=== PATIENT | female | born 1965 | race Hispanic/Latino ===

== ENCOUNTER 2018-08-21 10:55 | Emergency (ER) | payer MEDICARE ==
[2018-08-21 20:43] VITALS: BMI 22.6
== END 2018-08-21 11:03 | disposition left against medical advice (07) ==
LOC: ED 10:55
DX: Z02.89 Encounter for other administrative examinations (principal); Z00.00 Encounter for general adult medical examination without abnormal findings

== ENCOUNTER 2018-08-21 11:29 | Inpatient (IN) | payer MEDICARE, OTHER ==
[2018-08-21] MEDS ORDERED: Sodium Chloride 0.9% 500 ML IV STA (12:02)
--- NOTE | 2018-08-21 12:21 | ED PDOC ---
Arrival/HPI - General Chief Complaint: Abdominal Pain Time Seen by Provider: 08/21/18 11:41 Historian: Patient - History of Present Illness Narrative History of Present Illness (Text): 08/21/18 11:41 Karis Oliver, is a 53 year old female, with a past medical history of Crohn's disease, cholecystectomy, and hysterectomy, who presents to the emergency department complaining of nausea / vomiting and right lower quadrant abdominal pain secondary to Crohn's flare-up since 1-2 weeks. Patient denies recent travel outside [place], dysuria, hematuria, vaginal bleeding, chest pain, shortness of breath, cough, diarrhea, fevers, chills, or any other complaints. Denies recent antibiotic use. 08/21/18 15:51 Time/Duration: > week (1-2 weeks) Symptom Onset: Gradual Symptom Course: Unchanged Activities at Onset: Light Context: Home Past Medical History - Provider Review Nursing Documentation Reviewed: Yes Primary Care Provider: Francisco Nascimento - Infectious Disease Hx of Infectious Diseases: None - Reproductive Menopause: No - Cardiac Hx Hypertension: Yes - Neurological Hx Seizures: Yes - Endocrine/Metabolic Other/Comment: adrenal tumor - Gastrointestinal Hx Crohn's Disease: Yes - Psychiatric Hx Substance Use: No - Surgical History Other/Comment: cerrebral artery bypass [facility] in 2006 - Anesthesia Hx Anesthesia: Yes Hx Anesthesia Reactions: No Hx Malignant Hyperthermia: No Family/Social History - Physician Review Nursing Documentation Reviewed: Yes Family/Social History: Unknown Family HX Smoking Status: Never Smoked Hx Alcohol Use: No Hx Substance Use: No Allergies/Home Meds Allergies/Adverse Reactions: Allergies meperidine [From Demerol] Allergy (Verified 08/21/18 12:01) RASH Home Medications: Home Meds Medication Instructions Recorded Confirmed Unobtainable 08/21/18 08/21/18 Review of Systems - Physician Review All systems were reviewed & negative as marked: Yes - Review of Systems Constitutional: absent: Fevers, Other (chills) Respiratory: absent: SOB, Cough, Sputum, Wheezing Cardiovascular: absent: Chest Pain Gastrointestinal: Abdominal Pain (RLQ), Diarrhea, Nausea, Vomiting. absent: Constipation Genitourinary Female: absent: Dysuria, Frequency, Hematuria Skin: absent: Rash, Pruritis Neurological: absent: Headache, Dizziness Physical Exam Vital Signs Reviewed: Yes Vital Signs Temp Pulse Resp BP Pulse Ox 08/21/18 11:40 98.4 F 52 L 19 135/64 100 Temperature: Afebrile Blood Pressure: Normal Pulse: Bradycardic Respiratory Rate: Normal Appearance: Positive for: Well-Appearing, Non-Toxic, Comfortable Pain Distress: None Mental Status: Positive for: Alert and Oriented X 3 - Systems Exam Head: Present: Atraumatic, Normocephalic Pupils: Present: PERRL Extroacular Muscles: Present: EOMI Conjunctiva: Present: Normal Mouth: Present: Moist Mucous Membranes Neck: Present: Normal Range of Motion Respiratory/Chest: Present: Clear to Auscultation, Good Air Exchange. No: Respiratory Distress, Accessory Muscle Use, Wheezes, Rales, Rhonchi Cardiovascular: Present: Normal S1, S2, Bradycardic. No: Murmurs, Rub, Gallop Abdomen: Present: Tenderness (RLQ), Normal Bowel Sounds. No: Distention, Peritoneal Signs, Rebound, Guarding Back: Present: Normal Inspection Upper Extremity: Present: Normal Inspection. No: Cyanosis, Edema Lower Extremity: Present: Normal Inspection. No: Edema Neurological: Present: GCS=15, CN II-XII Intact, Speech Normal Skin: Present: Warm, Dry, Normal Color. No: Rashes Psychiatric: Present: Alert, Oriented x 3, Normal Insight, Normal Concentration Medical Decision Making ED Course and Treatment: 08/21/18 11:41 Impression: Pt is a 53 year old female, with a history of Crohn's disease, cholecystectomy, and hysterectomy, who presents to the emergency department complaining of nausea / vomiting and RLQ pain secondary to ?Crohn's flare-up since 1-2 weeks. Plan: -- CT A/P -- Labs -- IV Fluids -- Toradol -- Zofran -- Reassess and disposition Prior Visits: Notes and results from previous visits were reviewed. Patient was last seen in the emergency department on Progress Notes: 08/21/18 12:[address] Matute is needed as requested by patient 08/21/18 12:33 EKG shows sinus bradycardia at 47bpm with no acute ST changes 08/21/18 14:56 IMPRESSION: Circumferential mural thickening of the rectum consistent with nonspecific proctitis. This may reflect the patient's known Crohn's disease. No other significant abnormality is identified. Spoke to Dr. Matute who is requesting cipro and flagyl and clear liquid diet. Will review CT. Does not want steroids currently. Dr. Florentino accepts for Dr. Nascimento. - RAD Interpretation Radiology Orders: 08/21/18 12:01 ABD PELVIS PO & IV CONTRAST [CT] Stat - Medication Orders Current Medication Orders: Sodium Chloride (Sodium Chloride 0.9%) 500 mls @ 999 mls/hr IV .Q31M STA Stop: 08/21/18 12:32 Discontinued Medications Ketorolac Tromethamine (Toradol) 30 mg IVP STAT STA Stop: 08/21/18 12:03 - Scribe Statement The provider has reviewed the documentation as recorded by the Scribe Nj Sheth All medical record entries made by the Scribe were at my direction and personally dictated by me. I have reviewed the chart and agree that the record accurately reflects my personal performance of the history, physical exam, medical decision making, and the department course for this patient. I have also personally directed, reviewed, and agree with the discharge instructions and disposition. Disposition/Present on Arrival - Present on Arrival Any Indicators Present on Arrival: No History of DVT/PE: No History of Uncontrolled Diabetes: No Urinary Catheter: No History of Decub. Ulcer: No History Surgical Site Infection Following: None - Disposition Have Diagnosis and Disposition been Completed?: Yes Diagnosis: Crohns disease, Abdominal pain Disposition: HOSPITALIZED Disposition Time: 14:56 Patient Plan: Observation Patient Problems: Current Active Problems Problem Status Onset Abdominal pain Acute Crohns disease Acute Condition: FAIR Referrals: Francisco Nascimento MD [Primary Care Provider] - Follow up with primary Forms: [employer] (Lebanese)
[2018-08-21] MEDS ORDERED: Iohexol 240 (50 ml) ONE (12:22)
[2018-08-21 13:14] LABS: BASO # 0.02 K/mm3 (0.0-2.0); BASO % 0.4 % (0.0-3.0); EOS # 0.1 (0.0-0.7); HEMOGLOBIN 11.2 g/dL (12.0-16.0); LYMPH # 1.9 (1.2-3.4); LYMPH % 37.4 % (22.0-35.0); MEAN CELL VOLUME 83.9 fl (80.0-105.0); MEAN CORPUSCULAR HGB CONC 32.2 g/dl (31.0-37.0); MEAN PLATELET VOLUME 9.4 fl (7.0-11.0); MONO # 0.4 (0.1-0.6); RBC 4.15 10^6/uL (3.5-6.1); RED CELL DISTRIBUTION WIDTH 14.1 % (11.5-14.5); WHITE BLOOD COUNT 5.1 10^3/uL (4.5-11.0)
[2018-08-21 13:24] LABS: BLOOD UREA NITROGEN 23 mg/dL (7-21); GFR NON-AFRICAN AMERICAN 58; INR 1.05; PARTIAL THROMBOPLASTIN TIME 38.8 Seconds (26.9-38.3); PROTHROMBIN TIME 11.9 SECONDS (9.4-12.5)
[2018-08-21 13:25] LABS: ALB/GLOB RATIO 1.2 (1.1-1.8); ALBUMIN 4.1 g/dL (3.0-4.8); ALT/SGPT 17 U/L (7-56); AST/SGOT 20 U/L (14-36); CALCIUM 9.2 mg/dL (8.4-10.5); LIPASE 55 U/L (23-300)
[2018-08-21] MEDS ORDERED: Iodixanol 320 MG/ML 100 ML BOTTLE IV ONE (13:35)
--- NOTE | 2018-08-21 14:53 | CT ---
Date of service: 08/21/2018 PROCEDURE: CT Abdomen and Pelvis with contrast HISTORY: abdominal pain, hx crohns COMPARISON: None. TECHNIQUE: Contrast dose: 100 mL Visipaque 320 Radiation dose: Total exam DLP = 275.66 mGy-cm. This CT exam was performed using one or more of the following dose reduction techniques: Automated exposure control, adjustment of the mA and/or kV according to patient size, and/or use of iterative reconstruction technique. FINDINGS: LOWER THORAX: Unremarkable. LIVER: Normal size, contour and attenuation. No mass. No biliary dilatation. GALLBLADDER AND BILE DUCTS: Gallbladder appears unremarkable save for several surgical clips adjacent to the gallbladder, in the gallbladder fossa. This raises the possibility of prior cholecystectomy with postoperative collection in the gallbladder fossa. Please correlate with history. PANCREAS: Unremarkable. No gross lesion or ductal dilatation. SPLEEN: Unremarkable. ADRENALS: Unremarkable. No mass. KIDNEYS AND URETERS: Unremarkable. No hydronephrosis. No solid mass. VASCULATURE: Unremarkable. No aortic aneurysm. There is atherosclerotic calcification of the abdominal aorta. BOWEL: There is circumferential mural thickening of the rectum. No bowel obstruction. No other abnormal bowel loops. These findings in the rectum may reflect the patient's known Crohn's disease but are not specific. APPENDIX: Normal appendix. PERITONEUM: Unremarkable. No free fluid. No free air. LYMPH NODES: Unremarkable. No enlarged lymph nodes. BLADDER: Unremarkable. REPRODUCTIVE: Status post hysterectomy BONES: No acute fracture. OTHER FINDINGS: None. IMPRESSION: Circumferential mural thickening of the rectum consistent with nonspecific proctitis. This may reflect the patient's known Crohn's disease. No other significant abnormality is identified.
[2018-08-21] MEDS ORDERED: metroNIDAZOLE IV 500 mg/100 ml 500 MG/100 ML BAG IVPB STA (14:54)
[2018-08-21] MEDS ORDERED: Ciprofloxacin 400mg/200ml D5W 400 MG/200 ML BAG IVPB STA (14:55)
[2018-08-21 16:52] LABS: URINE BILIRUBIN NEGATIVE (NEGATIVE); URINE BLOOD NEGATIVE (NEGATIVE); URINE GLUCOSE (UA) NEGATIVE (NEGATIVE); URINE LEUKOCYTE ESTERASE NEGATIVE Leu/uL (NEGATIVE); URINE PROTEIN NEGATIVE mg/dL (<30 mg/dL); URINE UROBILINOGEN 0.2 E.U./dL (<1 E.U./dL)
[2018-08-21 16:55] LABS: URINE APPEARANCE CLEAR (CLEAR); URINE COLOR STRAW (YELLOW)
--- NOTE | 2018-08-21 19:36 | CARD ---
APPROVED REPORT Date of service: 08/21/2018 EKG Measurement Heart [id number] <Conclusion> Marked sinus bradycardia Abnormal ECG
[2018-08-21 20:43] VITALS: BMI 22.6
[2018-08-21] MEDS ORDERED: Pneumococcal 23-Valent Vaccine IM ONE (20:44)
[2018-08-22 08:35] LABS: BASO # 0.01 K/mm3 (0.0-2.0); BASO % 0.2 % (0.0-3.0); EOS % 0.4 % (1.5-5.0); HEMOGLOBIN 10.8 g/dL (12.0-16.0); LYMPH # 1.2 (1.2-3.4); LYMPH % 22.1 % (22.0-35.0); MEAN CELL VOLUME 82.8 fl (80.0-105.0); MEAN CORPUSCULAR HEMOGLOBIN 26.5 pg (25.0-35.0); MEAN PLATELET VOLUME 9.2 fl (7.0-11.0); MONO # 0.4 (0.1-0.6); MONO % 8.1 % (1.0-6.0); RBC 4.08 10^6/uL (3.5-6.1); WHITE BLOOD COUNT 5.3 10^3/uL (4.5-11.0)
[2018-08-22 08:59] LABS: ALB/GLOB RATIO 1.2 (1.1-1.8); ALBUMIN 3.8 g/dL (3.0-4.8); ALT/SGPT 16 U/L (7-56); AST/SGOT 11 U/L (14-36); BLOOD UREA NITROGEN 15 mg/dL (7-21); CALCIUM 9.1 mg/dL (8.4-10.5); GFR NON-AFRICAN AMERICAN > 60
[2018-08-22] MEDS: Mesalamine 800 mg DR Tab PO SCH (10:24)
--- NOTE | 2018-08-22 12:16 | CP.PCM.CON ---
<Lilibeth Monroe - Last Filed: 08/22/18 12:17> History of Present Illness - History of Present Illness History of Present Illness: PGY5 GI Consult Note for Dr. Juju Floresie Oliver is a 53F w/ hx of CVA with expressive dysphasia, Crohns (diagnosed 30 years ago?) who presents to the ER with complaints of abd pain. Pt has dysphasia s/p CVA, so communication was limited to yes or no answers. Pt stats that her symptoms of abd pain started 1-2 weeks ago. She denies any rectal bleeding, but notes diarrhea recently. She denies any nausea or vomiting. She notes having a colonoscopy within the year and was abnormal. She also notes weightloss. She notes being compliant on mesalamine and was previously on other meds but could not relay the medication names. She was started on cipro/flagyl in the ER and CT revealed rectal thickening PMHx: HTN, CVA?, dysphasia, Crohn's PSHx: Hysterectomy, cholecysectomy Social hx: unable to obtain Family hx: denies any GI related malignancies RSO: 12 point ROS conducted, neg other than above Past Patient History - Infectious Disease Hx of Infectious Diseases: None - Past Social History Smoking Status: Never Smoked - CARDIAC Hx Cardiac Disorders: Yes Hx Hypercholesterolemia: Yes Hx Hypertension: Yes - PULMONARY Hx Respiratory Disorders: No - NEUROLOGICAL Hx Neurological Disorder: Yes HX Cerebrovascular Accident: Yes (06/2017) Hx Seizures: Yes Hx Transient Ischemic Attacks (TIA): Yes Other/Comment: multiple tia's about 12, had cerebral artery bypass sx at [facility] in 2006 due to the multiple tia's, surgery was unsuccessful causing loss of oxygen to cerebral artery and was told she would have seizures, and a stroke in about 6 yrs. pt had multiple tia's, pt & family lost count how many since since and a cva 06/2017 which left her with right side weakness and impaired speech - HEENT Hx HEENT Problems: No - RENAL Hx Chronic Kidney Disease: No - ENDOCRINE/METABOLIC Hx Endocrine Disorders: Yes Other/Comment: adrenal tumor - HEMATOLOGICAL/ONCOLOGICAL Hx Blood Disorders: Yes Hx Cancer: Yes (melanoma face/back) - INTEGUMENTARY Hx Melanoma: Yes (face/back) - MUSCULOSKELETAL/RHEUMATOLOGICAL Hx Falls: No - GASTROINTESTINAL Hx Gastrointestinal Disorders: Yes Hx Crohn's Disease: Yes (since age 21) - GENITOURINARY/GYNECOLOGICAL Hx Genitourinary Disorders: No - PSYCHIATRIC Hx Substance Use: No - SURGICAL HISTORY Hx Surgeries: Yes Hx Cholecystectomy: Yes Hx Hysterectomy: Yes Other/Comment: cerebral artery bypass [facility] in 2007, c sections x5, melanoma removal from face and back - ANESTHESIA Hx Anesthesia: Yes Hx Anesthesia Reactions: No Hx Malignant Hyperthermia: No Meds Allergies/Adverse Reactions: Allergies Allergy/AdvReac Type Severity Reaction Status Date / Time meperidine [From Demerol] Allergy RASH Verified 08/21/18 12:01 - Medications Medications: Current Medications Atorvastatin Calcium (Lipitor) 40 mg PO DAILY [facility] Last Admin: 08/22/18 10:22 Dose: 40 mg Clopidogrel Bisulfate (Plavix) 75 mg PO DAILY [facility] Last Admin: 08/22/18 10:23 Dose: 75 mg Hydrochlorothiazide (Hydrodiuril) 25 mg PO DAILY [facility] Last Admin: 08/22/18 10:23 Dose: 25 mg Levetiracetam (Keppra) 1,000 mg PO BID [facility] Last Admin: 08/22/18 10:23 Dose: 1,000 mg Mesalamine (Asacol Hd 800mg) 2,400 mg PO DAILY [facility] Last Admin: 08/22/18 10:24 Dose: 2,400 mg Physical Exam - Constitutional Appears: Well, No Acute Distress - Head Exam Head Exam: ATRAUMATIC, NORMOCEPHALIC - Eye Exam Eye Exam: Normal appearance - ENT Exam ENT Exam: Mucous Membranes Moist, Normal Exam - Neck Exam Neck exam: Positive for: Normal Inspection - Respiratory Exam Respiratory Exam: Clear to Auscultation Bilateral, NORMAL BREATHING PATTERN. absent: Rales, Rhonchi, Wheezes, Respiratory Distress - Cardiovascular Exam Cardiovascular Exam: REGULAR RHYTHM, +S1, +S2 - GI/Abdominal Exam GI & Abdominal Exam: Normal Bowel Sounds, Soft, Tenderness (lower abd, around umbilicus). absent: Distended, Guarding, Hernia, Organomegaly, Rebound, Rigid - Extremities Exam Extremities exam: Negative for: joint swelling, pedal edema - Neurological Exam Neurological exam: Alert - Psychiatric Exam Psychiatric exam: Normal Affect, Normal Mood - Skin Skin Exam: Dry, Intact, Normal Color, Warm Results - Vital Signs Recent Vital Signs: Last Vital Signs Temp 99.7 F H 08/22/18 08:29 Pulse 63 08/22/18 08:29 Resp 20 08/22/18 08:29 BP 113/74 08/22/18 08:29 Pulse Ox 95 08/22/18 08:29 - Labs Result Diagrams: 08/22/18 08:20 08/22/18 08:20 Labs: Laboratory Results - last 24 hr 08/21/18 08/21/18 08/21/18 12:58 12:58 12:58 WBC 5.1 RBC 4.15 Hgb 11.2 L Hct 34.8 L MCV 83.9 MCH 27.0 MCHC 32.2 RDW 14.1 Plt Count 296 MPV 9.4 Neut % (Auto) 54.2 Lymph % (Auto) 37.4 H Starr % (Auto) 7.0 H Eos % (Auto) 1.0 L Baso % (Auto) 0.4 Lymph # (Auto) 1.9 Starr # (Auto) 0.4 Eos # (Auto) 0.1 Baso # (Auto) 0.02 Absolute Neuts (auto) 2.79 ESR PT 11.9 INR 1.05 APTT 38.8 H Sodium 140 Potassium 4.1 Chloride 107 Carbon Dioxide 22 Anion Gap 14 BUN 23 H Creatinine 1.0 Est GFR ( Amer) > 60 Est GFR (Non-Af Amer) 58 Random Glucose 83 Calcium 9.2 Phosphorus 4.3 Magnesium 2.1 Total Bilirubin 0.4 AST 20 ALT 17 Alkaline Phosphatase 94 Total Protein 7.4 Albumin 4.1 Globulin 3.3 Albumin/Globulin Ratio 1.2 Lipase 55 Urine Color Urine Appearance Urine pH Ur Specific [place] Urine Protein Urine Glucose (UA) Urine Ketones Urine Blood Urine Nitrate Urine Bilirubin Urine Urobilinogen Ur Leukocyte Esterase 08/21/18 08/22/18 08/22/18 16:00 08:20 08:20 WBC 5.3 RBC 4.08 Hgb 10.8 L Hct 33.8 L MCV 82.8 MCH 26.5 MCHC 32.0 RDW 14.0 Plt Count 253 MPV 9.2 Neut % (Auto) 69.2 H Lymph % (Auto) 22.1 Starr % (Auto) 8.1 H Eos % (Auto) 0.4 L Baso % (Auto) 0.2 Lymph # (Auto) 1.2 Starr # (Auto) 0.4 Eos # (Auto) 0.0 Baso # (Auto) 0.01 Absolute Neuts (auto) 3.69 ESR 25 H PT INR APTT Sodium 143 Potassium 4.0 Chloride 110 H Carbon Dioxide 19 L Anion Gap 17 BUN 15 Creatinine 0.9 Est GFR ( Amer) > 60 Est GFR (Non-Af Amer) > 60 Random Glucose 92 Calcium 9.1 Phosphorus Magnesium Total Bilirubin 0.4 AST 11 L D ALT 16 Alkaline Phosphatase 90 Total Protein 7.0 Albumin 3.8 Globulin 3.1 Albumin/Globulin Ratio 1.2 Lipase Urine Color Straw Urine Appearance Clear Urine pH 6.0 Ur Specific [place] 1.010 Urine Protein Negative Urine Glucose (UA) Negative Urine Ketones Negative Urine Blood Negative Urine Nitrate Negative Urine Bilirubin Negative Urine Urobilinogen 0.2 Ur Leukocyte Esterase Negative Assessment & Plan - Assessment and Plan (Free Text) Assessment: Karis Oliver is a 53F w/ hx of crohns, dysphasia who presents with abd pain Abd pain, etiology unclear: ddx: crohns, proctitis, enteritis (viral or bacterial) Acute diarrhea, etiology unknown; ddx: infectous vs crohn's flare hx of Crohns hx CVA dysphasia Plan: -r/o c.diff; obtain stool cultures -continue cipro and flagyl -liquid diet as tolerated -PPI PO 40g daily -Heparin DVT proph -fecal toño -esr and crp -continue mesalamine PO as ordered -blood cultures pending will d/w Dr. Matute <Sunday Matute V - Last Filed: 08/22/18 23:44> Meds - Medications Medications: Current Medications Atorvastatin Calcium (Lipitor) 40 mg PO DAILY [facility] Last Admin: 08/22/18 10:22 Dose: 40 mg Clopidogrel Bisulfate (Plavix) 75 mg PO DAILY [facility] Last Admin: 08/22/18 10:23 Dose: 75 mg Hydrochlorothiazide (Hydrodiuril) 25 mg PO DAILY [facility] Last Admin: 08/22/18 10:23 Dose: 25 mg Metronidazole (Flagyl) 500 mg in 100 mls @ 100 mls/hr IVPB Q8 [facility]; Protocol Last Admin: 08/22/18 21:06 Dose: 100 mls/hr Levetiracetam (Keppra) 1,000 mg PO BID [facility] Last Admin: 08/22/18 17:55 Dose: 1,000 mg Mesalamine (Asacol Hd 800mg) 2,400 mg PO DAILY [facility] Last Admin: 08/22/18 10:24 Dose: 2,400 mg Results - Vital Signs Recent Vital Signs: Last Vital Signs Temp 99.7 F H 08/22/18 08:29 Pulse 63 08/22/18 08:29 Resp 20 08/22/18 08:29 BP 113/74 08/22/18 08:29 Pulse Ox 95 08/22/18 08:29 - Labs Result Diagrams: 08/22/18 08:20 08/22/18 08:20 Labs: Laboratory Results - last 24 hr 08/22/18 08/22/18 08:20 08:20 WBC 5.3 RBC 4.08 Hgb 10.8 L Hct 33.8 L MCV 82.8 MCH 26.5 MCHC 32.0 RDW 14.0 Plt Count 253 MPV 9.2 Neut % (Auto) 69.2 H Lymph % (Auto) 22.1 Starr % (Auto) 8.1 H Eos % (Auto) 0.4 L Baso % (Auto) 0.2 Lymph # (Auto) 1.2 Starr # (Auto) 0.4 Eos # (Auto) 0.0 Baso # (Auto) 0.01 Absolute Neuts (auto) 3.69 ESR 25 H Sodium 143 Potassium 4.0 Chloride 110 H Carbon Dioxide 19 L Anion Gap 17 BUN 15 Creatinine 0.9 Est GFR ( Amer) > 60 Est GFR (Non-Af Amer) > 60 Random Glucose 92 Calcium 9.1 Total Bilirubin 0.4 AST 11 L D ALT 16 Alkaline Phosphatase 90 C-Reactive Protein 21.20 H Total Protein 7.0 Albumin 3.8 Globulin 3.1 Albumin/Globulin Ratio 1.2 Attending/Attestation - Attestation I have personally seen and examined this patient.: Yes I have fully participated in the care of the patient.: Yes I have reviewed all pertinent clinical information: Yes Notes (Text): This 53-year-old patient with a long history of Crohn's disease only on mesalam ine p.o. was admitted for increasing episodes of diarrhea abdominal cramps. Patient also gave significant history of weight loss nearly about 30 pounds the last few months. Status post CVA patient does have some dysarthria. Patient has been tolerating diet. History was from the patient and also patient's son who was at bedside. Patient was living in [place] recently moved to [place]. Patient has been followed by irrigation specialist in [place]. Patient had multiple colonoscopies done in the past last colonoscopy was close to year ago. Patient had seen Dr. Castorena in [place]. He was started on prednisone 10 mg. He took it for few weeks. Patient was still remains symptomatic and symptoms more pronounced now. She was advised to go to the ER. Patient has been on liquid diet On examination abdomen was soft nontender The CT scan was reviewed The differential diagnosis should include a IBD exacerbation of Crohn's Rule out C. difficile Recommend 1. Stool for C. difficile, stool culture, calprotectin 2. Empiric antibiotic Cipro and Flagyl 3. Liquid diet 4. Review of the records from [facility] 5. Flexible sigmoidoscopy/colonoscopy on Friday08/22/18 23:42
[2018-08-22] MEDS ORDERED: Ciprofloxacin 400mg/200ml D5W 400 MG/200 ML BAG IVPB STA (12:26)
[2018-08-22] MEDS: metroNIDAZOLE IV 500 mg/100 ml 500 MG/100 ML BAG IVPB SCH ×2 (15:45→21:06)
[2018-08-23] MEDS: metroNIDAZOLE IV 500 mg/100 ml 500 MG/100 ML BAG IVPB SCH ×3 (05:11→21:29)
[2018-08-23] MEDS: Mesalamine 800 mg DR Tab PO SCH (09:54)
[2018-08-23] MEDS ORDERED: NuLYTELY (NACL/NAHCO3/KCL/PEG) 4L PO ONE (13:20)
[2018-08-23] MEDS ORDERED: Bisacodyl 5mg EC Tab PO ONE (13:20)
--- NOTE | 2018-08-23 14:02 | CP.PCM.PN ---
<Lilibeth Monroe - Last Filed: 08/23/18 14:03> Subjective - Date & Time of Evaluation Date of Evaluation: 08/23/18 Time of Evaluation: 10:00 - Subjective Subjective: PGY5 GI Follow-up Pt seen and examined bedside Denies ant abd pain tolertaed liquids +BM no other complaints ROS: 12 point ROS conducted, neg other than above Objective - Vital Signs/Intake and Output Vital Signs (last 24 hours): Temp Pulse Resp BP Pulse Ox 98.7 F 85 18 95/69 L 96 08/23/18 08:18 08/23/18 08:18 08/23/18 08:18 08/23/18 08:18 08/23/18 08:18 Intake and Output: 08/23/18 08/23/18 06:59 18:59 Intake Total 1140 Balance 1140 - Medications Medications: Current Medications Atorvastatin Calcium (Lipitor) 40 mg PO DAILY [facility] Last Admin: 08/23/18 09:54 Dose: 40 mg Clopidogrel Bisulfate (Plavix) 75 mg PO DAILY [facility] Last Admin: 08/23/18 09:54 Dose: 75 mg Metronidazole (Flagyl) 500 mg in 100 mls @ 100 mls/hr IVPB Q8 [facility]; Protocol Last Admin: 08/23/18 05:11 Dose: 100 mls/hr Levetiracetam (Keppra) 1,000 mg PO BID [facility] Last Admin: 08/23/18 09:54 Dose: 1,000 mg Mesalamine (Asacol Hd 800mg) 2,400 mg PO DAILY [facility] Last Admin: 08/23/18 09:54 Dose: 2,400 mg - Labs Labs: 08/22/18 08:20 08/22/18 08:20 PT 11.9 SECONDS (9.4-12.5) 08/21/18 12:58 INR 1.05 08/21/18 12:58 APTT 38.8 Seconds (26.9-38.3) H 08/21/18 12:58 - Constitutional Appears: Non-toxic, No Acute Distress - Head Exam Head Exam: ATRAUMATIC, NORMOCEPHALIC - Eye Exam Eye Exam: Normal appearance - ENT Exam ENT Exam: Mucous Membranes Moist, Normal Exam - Respiratory Exam Respiratory Exam: Clear to Ausculation Bilateral, NORMAL BREATHING PATTERN. absent: Rales, Wheezes, Respiratory Distress - Cardiovascular Exam Cardiovascular Exam: REGULAR RHYTHM, +S1, +S2 - GI/Abdominal Exam GI & Abdominal Exam: Soft, Normal Bowel Sounds. absent: Firm, Guarding, Rigid, Tenderness, Rebound - Extremities Exam Extremities Exam: absent: Joint Swelling, Pedal Edema - Neurological Exam Neurological Exam: Alert, Awake - Psychiatric Exam Psychiatric exam: Normal Affect, Normal Mood - Skin Skin Exam: Dry, Intact, Normal Color, Warm Assessment and Plan - Assessment and Plan (Free Text) Assessment: Karis Oliver is a 53F w/ hx of crohns, dysphasia who presents with abd pain Abd pain, etiology unclear: ddx: crohns, proctitis, enteritis (viral or bacterial) Acute diarrhea, etiology unknown; ddx: infectous vs crohn's flare weightloss hx of Crohns hx CVA dysphasia Plan: -r/o cdiff; obtain stool cultures -continue cipro and flagyl -clear liquid diet -PPI PO 40g daily -Heparin DVT proph -fecal toño -continue mesalamine PO as ordered -start colon prep -NPO after midnight -EGD and colonoscopy tomorrow d/w Dr. Matute <Sunday Matute V - Last Filed: 08/24/18 00:06> Objective - Vital Signs/Intake and Output Vital Signs (last 24 hours): Temp Pulse Resp BP Pulse Ox 98.7 F 85 18 95/69 L 96 08/23/18 08:18 08/23/18 08:18 08/23/18 08:18 08/23/18 08:18 08/23/18 08:18 Intake and Output: 08/23/18 08/24/18 18:59 06:59 Intake Total 100 1860 Balance 100 1860 - Medications Medications: Current Medications Atorvastatin Calcium (Lipitor) 40 mg PO DAILY [facility] Last Admin: 08/23/18 09:54 Dose: 40 mg Clopidogrel Bisulfate (Plavix) 75 mg PO DAILY [facility] Last Admin: 08/23/18 09:54 Dose: 75 mg Metronidazole (Flagyl) 500 mg in 100 mls @ 100 mls/hr IVPB Q8 [facility]; Protocol Last Admin: 08/23/18 21:29 Dose: 100 mls/hr Levetiracetam (Keppra) 1,000 mg PO BID [facility] Last Admin: 08/23/18 18:06 Dose: 1,000 mg Mesalamine (Asacol Hd 800mg) 2,400 mg PO DAILY [facility] Last Admin: 08/23/18 09:54 Dose: 2,400 mg - Labs Labs: 08/22/18 08:20 08/22/18 08:20 PT 11.9 SECONDS (9.4-12.5) 08/21/18 12:58 INR 1.05 08/21/18 12:58 APTT 38.8 Seconds (26.9-38.3) H 08/21/18 12:58 Attending/Attestation - Attestation I have personally seen and examined this patient.: Yes I have fully participated in the care of the patient.: Yes I have reviewed all pertinent clinical information, including history, physical exam and plan: Yes Notes (Text): This patient was seen and evaluated along with GI fellow earlier. This is an addendum to the GI progress report dictated by the GI fellow. Patient will be scheduled for a colonoscopy and possibly endoscopy to further evaluate his patient's weight loss and diarrhea. Continue the antibiotics Stool for C. difficile no plan for now for steroid or biologic therapy for Crohn's disease now 08/24/18 00:02
--- NOTE | 2018-08-23 21:37 | PN ---
DATE: 08/23/2018 SUBJECTIVE: The patient is a 53-year-old white female who was admitted with right lower quadrant pain and also left lower quadrant pain. The patient has a history of CVA after multiple TIAs. She has expressive aphasia and right hemiparesis. 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 She had an appointment to see Dr. Matute as an outpatient, but not until October when she has developed severe abdominal pain. She was admitted to the hospital with exacerbation of Crohn colitis versus proctitis. The patient is afebrile. Vital signs are stable. The patient has decreased pain. The patient get IV antibiotics and mesalamine. Case was discussed with Dr. Matute as far as treatment of her worsening of her Crohn colitis possible remission medication versus chronic medication. Francisco Nascimento MD
--- NOTE | 2018-08-23 21:58 | HP ---
DATE OF EXAM: 08/23/2018 HISTORY OF PRESENT ILLNESS: The patient is 53 years old, lying in bed, seems to be comfortable. Has expressive dysphagia because of previous CVA. The patient came to emergency room because of abdominal pain, unable to give much elaborate history; however, information collected from her admission that the patient has abdominal pain that started 2-3 weeks ago with decreased appetite, having intermittent diarrhea. No nausea or vomiting. She carry a diagnosis of Crohn's disease and she was prescribed to have mesalamine and she claims to be compliant with that. PAST MEDICAL HISTORY: Significant for, 1. CVA. 2. History of Crohn's disease. PAST SURGICAL HISTORY: Significant for cholecystectomy and hysterectomy. MEDICATIONS AT HOME: The patient is on Keppra 2 tablets twice a day, hydrochlorothiazide, simvastatin 80 mg daily, Plavix 75 daily, and Lialda 2 tablets daily. PHYSICAL EXAMINATION: GENERAL: She is awake and alert, able to communicate, but has dysphagia and unable to relay her thought completely. VITAL SIGNS: She is afebrile. Pulse 85, respiration 18 and blood pressure 95/69. LUNGS: Bilateral fair airflow. No rhonchi or crackles. HEART: S1 and S2, audible. ABDOMEN: Soft. Slightly right upper and right lower quadrant discomfort. NEUROLOGIC: The patient is awake, alert and able to communicate, but limited. EXTREMITIES: Bilateral legs, no edema. LABORATORY EXAMINATION: WBC 5.3, hemoglobin 10.8, hematocrit 33.8 and platelet 253. PT 11.9 and INR 1.05. Chemistry; sodium 143, potassium 4.0, chloride 110, CO2 of 19, BUN 15, creatinine 0.9 and blood sugar 192. LFT's are within normal limits. C-reactive protein 21.20. Urinalysis is unremarkable. CT scan of the abdomen and pelvis was done that shows circumferential mural thickening of rectum consistent with proctitis. ASSESSMENT: 1. Abdominal pain, probably exacerbation of Crohn's disease. 2. History of cerebrovascular accident in the past with communication limitation. 3. Chronic anemia. 4. History of seizure disorder. PLAN: Currently, the patient is on mesalamine. She is on metronidazole. I will discontinue hydrochlorothiazide. Continue her on Keppra. She is on statin. She is on Plavix for prevention of CVA. She is on a liquid diet, we will continue on that and follow up her electrolytes intermittently. Lupis Forte MD
[2018-08-24] MEDS: metroNIDAZOLE IV 500 mg/100 ml 500 MG/100 ML BAG IVPB SCH ×2 (06:08→18:57)
--- NOTE | 2018-08-24 08:01 | HP ---
DATE OF EXAM: 08/22/2018 CHIEF COMPLAINT AND HISTORY OF PRESENT ILLNESS: This is a 53-year-old female who is coming in to the hospital with a past medical history of Crohn's disease. She came in because she was having nausea and vomiting, she was having right lower quadrant pain secondary to her Crohn's. The patient has difficulty in giving a full history because of her aphasia from a previous stroke. The patient has no complaints of any headaches or dizziness. No nausea or vomiting. She says she is feeling better than when she first came in to the hospital. PAST MEDICAL HISTORY: 1. Crohn's disease. 2. Adrenal tumor. 3. Hypertension. 4. CVA in 2018. 5. Melanoma. PAST SURGICAL HISTORY: 1. Cholecystectomy. 2. Hysterectomy. 3. Cerebral artery bypass in 2006. Paulo Hammonds MD
[2018-08-24 11:13] LABS: BASO # 0.02 K/mm3 (0.0-2.0); BASO % 0.5 % (0.0-3.0); EOS # 0.1 (0.0-0.7); EOS % 1.6 % (1.5-5.0); HEMOGLOBIN 10.7 g/dL (12.0-16.0); LYMPH # 1.7 (1.2-3.4); LYMPH % 40.1 % (22.0-35.0); MEAN CELL VOLUME 82.3 fl (80.0-105.0); MEAN CORPUSCULAR HEMOGLOBIN 26.3 pg (25.0-35.0); MEAN CORPUSCULAR HGB CONC 31.9 g/dl (31.0-37.0); MEAN PLATELET VOLUME 9.3 fl (7.0-11.0); MONO # 0.3 (0.1-0.6); MONO % 6.9 % (1.0-6.0); RBC 4.07 10^6/uL (3.5-6.1); RED CELL DISTRIBUTION WIDTH 14.1 % (11.5-14.5); WHITE BLOOD COUNT 4.3 10^3/uL (4.5-11.0)
[2018-08-24 11:19] LABS: INR 1.19; PROTHROMBIN TIME 13.4 SECONDS (9.4-12.5)
[2018-08-24 11:24] LABS: ALB/GLOB RATIO 1.2 (1.1-1.8); ALBUMIN 3.7 g/dL (3.0-4.8); ALT/SGPT 20 U/L (7-56); AST/SGOT 19 U/L (14-36); BLOOD UREA NITROGEN 15 mg/dL (7-21); CALCIUM 9.3 mg/dL (8.4-10.5); GFR NON-AFRICAN AMERICAN 58
--- NOTE | 2018-08-24 11:44 | PN ---
DATE: 08/24/2018 SUBJECTIVE: A 53-year-old white female admitted to the hospital with exacerbation of Crohn's and colitis. The patient is n.p.o. for colonoscopy today with Dr. Matute. The patient has no pain overnight. She is afebrile. Vital signs are stable. Her abdomen is soft. Hemoglobin is 10.8. White count 5.3. Temperature is 98.7. Abdomen is soft. Bowel sounds are normoactive. There is no masses papule. Extremities; without cyanosis, clubbing, or edema. Plan is for colonoscopy. Remission medication. Continue sulfasalazine and discussed with Dr. Matute for possible discharge after colonoscopy, if depending on the results. Francisco Nascimento MD
[2018-08-24] MEDS ORDERED: Dextrose 5%/0.45% NS 1,000 ML IV SCH (12:30)
[2018-08-24] MEDS: Mesalamine 800 mg DR Tab PO SCH (12:57)
[2018-08-24] MEDS ORDERED: Sodium Chloride 0.9% 1,000 ML IV SCH ×2 (14:00→14:45)
[2018-08-24] MEDS ORDERED: Propofol 10 mg/ml Inj (20 ML) ONE (14:05)
[2018-08-24] MEDS ORDERED: Lidocaine PF 2% (5 ml) Inj (For Cardiac Arrhy) ONE (14:06)
[2018-08-24] MEDS ORDERED: Lidocaine 1% Inj (20ml) ONE (14:06)
--- NOTE | 2018-08-24 14:21 | CP.PCM.APN ---
Subjective - Date & Time of Evaluation Date of Evaluation: 08/24/18 Time of Evaluation: 11:00 - Subjective Subjective: Pt. seen, sitting up in bed, denied any further abdominal pain, denied nausea, vomiting, currently NPO for Flex Sigmoid as per GI. Objective - Vital Signs/Intake and Output Vital Signs (last 24 hours): Temp Pulse Resp BP Pulse Ox 99.4 F 66 20 151/86 H 98 08/24/18 13:47 08/24/18 13:47 08/24/18 13:47 08/24/18 13:47 08/24/18 14:10 Intake and Output: 08/24/18 08/24/18 06:59 18:59 Intake Total 2100 Balance 2100 - Medications Medications: Current Medications Atorvastatin Calcium (Lipitor) 40 mg PO DAILY [facility] Last Admin: 08/24/18 09:31 Dose: Not Given Clopidogrel Bisulfate (Plavix) 75 mg PO DAILY [facility] Last Admin: 08/24/18 09:31 Dose: Not Given Metronidazole (Flagyl) 500 mg in 100 mls @ 100 mls/hr IVPB Q8 [facility]; Protocol Last Admin: 08/24/18 06:08 Dose: 100 mls/hr Potassium Chloride (Potassium Chloride 20 Meq/100 Ml) 20 meq in 100 mls @ 50 mls/hr IVPB ONCE ONE Stop: 08/24/18 14:24 Last Admin: 08/24/18 13:03 Dose: 50 mls/hr Dextrose/Sodium Chloride (Dextrose 5%/0.45% Ns 1000 Ml) 1,000 mls @ 100 mls/hr IV .Q10H [facility] Last Admin: 08/24/18 12:58 Dose: 100 mls/hr Sodium Chloride (Sodium Chloride 0.9%) 1,000 mls @ 100 mls/hr IV .Q10H [facility] Stop: 08/24/18 15:47 Levetiracetam (Keppra) 1,000 mg PO BID [facility] Last Admin: 08/24/18 09:31 Dose: 1,000 mg Mesalamine (Asacol Hd 800mg) 2,400 mg PO DAILY [facility] Last Admin: 08/24/18 12:57 Dose: Not Given - Labs Labs: 08/24/18 10:50 08/24/18 10:50 PT 13.4 SECONDS (9.4-12.5) H 08/24/18 10:50 INR 1.19 08/24/18 10:50 APTT 38.8 Seconds (26.9-38.3) H 08/21/18 12:58 - Constitutional Appears: Well, Non-toxic - Head Exam Head Exam: NORMOCEPHALIC - Eye Exam Eye Exam: Normal appearance - Neck Exam Neck Exam: Full ROM - Respiratory Exam Respiratory Exam: Clear to Ausculation Bilateral - Cardiovascular Exam Cardiovascular Exam: +S1, +S2 - GI/Abdominal Exam GI & Abdominal Exam: Soft, Normal Bowel Sounds - Rectal Exam Rectal Exam: Deferred - Exam Exam: absent: Circumcision, NORMAL INSPECTION, Scrotal Swelling, Testicular Tenderness, Uretheral Discharge, Testicular Vertical Lie, Bladder Distension - Extremities Exam Extremities Exam: Full ROM - Back Exam Back Exam: absent: CVA tenderness (L), CVA tenderness (R), Full ROM, muscle spasm, NORMAL INSPECTION, paraspinal tenderness, rash noted, tenderness, vertebral tenderness - Neurological Exam Neurological Exam: Alert, Awake, Oriented x3 - Skin Skin Exam: Dry, Intact, Normal Color, Warm Assessment and Plan - Assessment and Plan (Free Text) Assessment: ITS Impressions Abdomen/Pelvis CT 08/21/18 12:01 IMPRESSION: Circumferential mural thickening of the rectum consistent with nonspecific proctitis. This may reflect the patient's known Crohn's disease. No other significant abnormality is identified. Assessment: 53F w/ hx of CVA with expressive dysphasia, Crohns (diagnosed 30 years ago?) who presents to the ER with complaints of abd pain for past 2 weeks admitted for further eval and treatment, with GI consulted. Plan: 1. ABdominal pain- For Flex Sig. per GI. REctal thickening on CT SCan- cont flagyl, cipro per GI. Stool Cx, stool cdiff pending. Further recs pending GI workup. Will continue to monitor clinical status and follow.
[2018-08-24] MEDS ORDERED: Simethicone 40 mg/0.6 ml Liquid (30 ml) ONE ×2 (14:30→14:31)
[2018-08-24 15:09] VITALS: RESP 12; TEMP 98; O2SAT 100
[2018-08-24 15:17] VITALS: BP 135/94; PULSE 79
--- NOTE | 2018-08-25 23:06 | DS ---
HISTORY OF PRESENT ILLNESS: A 53-year-old white female discharged on 08/24/2018. The patient has a history of CVA with expressive aphasia. The patient was admitted to the hospital with acute abdomen, was seen with the history of Crohn's colitis off her medications. The patient had a CT, which showed thickening of the sigmoid colon and rectum. The patient was seen in consultation by Dr. Matute. The patient had inpatient sigmoidoscopy yesterday and was restarted on mesalamine by Dr. Matute. The patient was deemed at this point. She is afebrile. Abdomen was soft. She had no nausea, vomiting, or diarrhea that she will be able to be discharged home in improved condition to followup as an outpatient. The patient eventually was discharged home to be follow as an outpatient. FINAL DISCHARGE DIAGNOSES: Acute exacerbation of Crohn's colitis, history of cerebrovascular accident with expressive aphasia and hypertension. Francisco Nascimento MD
== END 2018-08-24 20:08 | disposition home or self-care (01) | DRG 386 ==
LOC: ED 11:29 → OBSVTOIN 15:00 → ERH 15:00 → 3RSO 18:37
PROVIDERS: ADMIT Internal Medicine Nephrology; ATTEND Internal Medicine
PROC: 0DJD8ZZ Inspection of Lower Intestinal Tract, Via Natural or Artificial Opening Endoscopic (ICD-10-PCS; principal; 2018-08-24 14:30)
DX: K50.10 Crohn's disease of large intestine without complications (principal); I69.351 Hemiplegia and hemiparesis following cerebral infarction affecting right dominant side; I69.321 Dysphasia following cerebral infarction; I69.320 Aphasia following cerebral infarction; G40.909 Epilepsy, unspecified, not intractable, without status epilepticus; I10 Essential (primary) hypertension; D64.9 Anemia, unspecified; K64.1 Second degree hemorrhoids; E78.00 Pure hypercholesterolemia, unspecified; Z79.02 Long term (current) use of antithrombotics/antiplatelets; Z85.820 Personal history of malignant melanoma of skin